=== PATIENT | female | born 1975 | race Caucasian/White ===

== ENCOUNTER 2016-10-31 06:24 | Emergency (ER) | payer BC ==
[2016-10-31] MEDS ORDERED: SODIUM CHLORIDE 0.9% 1,000 ML ONE (07:16)
[2016-10-31] MEDS ORDERED: METOCLOPRAMIDE HCL 5 MG/ML 2ML VIAL ONE (07:16)
[2016-10-31] MEDS ORDERED: ONDANSETRON 4 MG/2ML 2 ML VIAL ONE (07:16)
[2016-10-31] MEDS ORDERED: DIPHENHYDRAMINE HCL 50 MG/1 ML VIAL ONE (07:17)
[2016-10-31] MEDS ORDERED: KETOROLAC TROMETHAMINE 30 MG/ML 1 ML VIAL ONE (07:17)
[2016-10-31] MEDS ORDERED: DEXAMETHASONE SOD PHOS 10 MG/1 ML VIAL ONE (07:17)
[2016-10-31 07:49] LABS: BASO % 0.5 % (0.2-1.0); EOS # 0.1 (0.0-0.5); EOS % 1.4 % (0.9-2.9); HEMATOCRIT 38.2 % (37.0-47.0); HEMOGLOBIN 12.6 gm/l (12.0-16.0); IMM NEUT% 0.5 % (0-1); LYMPH # 0.3 (1.0-4.8); LYMPH % 3.9 % (15-45); MEAN CELL VOLUME 98.5 fl (81.0-99.0); MEAN CORPUSCULAR HEMOGLOBIN 32.5 pg (27.0-31.0); MEAN PLATELET VOLUME 10.2 fl (7.4-10.4); MONO # 0.5 (0.0-0.8); MONO % 6.1 % (4-12); NEUT % 87.6 % (43-75); PLATELET COUNT 231 K/mm3 (130-400)
[2016-10-31 08:10] LABS: ALB/GLOB RATIO 1.4 (>1.0); CALCIUM 9.1 mg/dL (8.6-10.3)
== END 2016-10-31 08:45 | disposition home or self-care (01) ==
LOC: ED 06:24
DX: G43.909 Migraine, unspecified, not intractable, without status migrainosus (principal); J34.89 Other specified disorders of nose and nasal sinuses; B34.9 Viral infection, unspecified; R11.10 Vomiting, unspecified; R19.7 Diarrhea, unspecified
CPT/HCPCS: 85025; 80053; 87804; 96375 ×4; 99283 ×2; 96374; 96361; J1200; J1100; J2765; J1885; J2405; J7030